=== PATIENT | male | born 1980 | race African-American/Black ===

== ENCOUNTER 2021-11-14 20:24 | Emergency (ER) | payer MEDICARE, OTHER ==
[~2021-11-14] VITALS: Ht 185.4 cm; Wt 124.7 kg
[2021-11-14 20:40] VITALS: BP 134/70
[2021-11-14 21:20] LABS: BASOPHILS % (AUTO) 0.5 % (0.0-2.0); EOSINOPHILS % (AUTO) 2.5 % (0.0-6.0); HEMATOCRIT 39 % (39-51); LYMPHOCYTES % (AUTO) 19.6 % (20.0-44.0); MEAN CORPUSCULAR HGB CONC 33 g/dl (31.0-36.0); MEAN CORPUSCULAR VOLUME 89 fL (80-96); MONOCYTES # (AUTO) 0.3 K/uL (0.1-1.30); MONOCYTES % (AUTO) 5.8 % (2.0-12.0); NEUTROPHILS # (AUTO) 3.5 K/uL (1.8-8.9); NEUTROPHILS % (AUTO) 71.6 % (43.0-81.0); PLATELET COUNT (AUTO) 284 K/uL (150-450); RED BLOOD CELL COUNT(AUTO) 4.41 MIL/uL (4.5-6.0); WHITE BLOOD COUNT (AUTO) 4.9 K/uL (4.3-11.0)
[2021-11-14 21:27] LABS: CALCIUM, SERUM 8.9 mg/dL (8.5-10.1); CREATININE 1.7 mg/dL (0.6-1.3); POTASSIUM 4.3 mmol/L (3.5-5.1)
[2021-11-14 21:33] LABS: ALBUMIN 3.2 g/dL (3.4-5.0); BILIRUBIN,DIRECT 0.1 mg/dL (0.0-0.2); BILIRUBIN,TOTAL 0.2 mg/dL (0.2-1.0); TOTAL PROTEIN, SERUM 7.2 g/dL (6.4-8.2)
[2021-11-14] MEDS ORDERED: ACETAMINOPHEN 325 MG TABLET ONE (22:16)
[2021-11-14] MEDS ORDERED: ACETAMINOPHEN 325 MG TABLET PO ONE (22:30)
--- NOTE | 2021-11-14 22:36 | NUR ---
Patient given written and verbal discharge instructions. Patient verbalizes understanding of instructions. Patient is ambulatory with steady gait. Refuses offer of residential placement. Patient given list of available shelters in surrounding area.
== END 2021-11-14 22:37 | disposition home or self-care (01) ==
LOC: ER 20:27
DX: R20.2 Paresthesia of skin (principal); E86.0 Dehydration; N28.9 Disorder of kidney and ureter, unspecified; F10.10 Alcohol abuse, uncomplicated; I10 Essential (primary) hypertension; E11.9 Type 2 diabetes mellitus without complications; Z59.00 Homelessness unspecified; Y90.9 Presence of alcohol in blood, level not specified
CPT/HCPCS: 36415; 80048-TC; 80076-TC; 83735-TC; 85025-TC

== ENCOUNTER 2021-11-16 14:30 | Emergency (ER) | payer MEDICARE, OTHER ==
[~2021-11-16] VITALS: Ht 180.3 cm; Wt 105.2 kg
[2021-11-16 15:27] LABS: BASOPHILS % (AUTO) 0.3 % (0.0-2.0); EOSINOPHILS % (AUTO) 2.3 % (0.0-6.0); HEMATOCRIT 39 % (39-51); HEMOGLOBIN 12.9 g/dL (13.5-17.5); LYMPHOCYTES # (AUTO) 1.2 K/uL (0.8-4.8); LYMPHOCYTES % (AUTO) 25.1 % (20.0-44.0); MEAN CORPUSCULAR HGB CONC 33 g/dl (31.0-36.0); MEAN CORPUSCULAR VOLUME 89 fL (80-96); MONOCYTES # (AUTO) 0.5 K/uL (0.1-1.30); MONOCYTES % (AUTO) 9.8 % (2.0-12.0); NEUTROPHILS % (AUTO) 62.5 % (43.0-81.0); PLATELET COUNT (AUTO) 307 K/uL (150-450); RED BLOOD CELL COUNT(AUTO) 4.41 MIL/uL (4.5-6.0); WHITE BLOOD COUNT (AUTO) 4.8 K/uL (4.3-11.0)
[2021-11-16 15:39] LABS: CALCIUM, SERUM 8.4 mg/dL (8.5-10.1); CREATININE 1.1 mg/dL (0.6-1.3); POTASSIUM 3.6 mmol/L (3.5-5.1)
[2021-11-16 16:39] LABS: BILIRUBIN,URINE NEGATIVE (NEGATIVE); COLOR,URINE YELLOW (YELLOW); LEUKOCYTE ESTERASE ,URINE NEGATIVE (NEGATIVE); NITRITE, URINE NEGATIVE (NEGATIVE); PH,URINE 7.5 (5.0-8.0); PROTEIN,URINE 30 mg/dl (NEGATIVE); UGLUCOSE NEGATIVE (NEGATIVE)
[2021-11-16 16:53] LABS: RBC,URINE 0-2 /HPF (0-2); WBC,URINE 0-2 /HPF (0-3)
[2021-11-16 16:54] LABS: BACTERIA,URINE Few /HPF (None Seen); SQUAMOUS EPITHELIAL CELL,UR Few /HPF (None Seen)
[2021-11-16 16:59] VITALS: BP 130/74
== END 2021-11-16 17:11 | disposition home or self-care (01) ==
LOC: ER 15:19
DX: E86.0 Dehydration (principal); I10 Essential (primary) hypertension; E11.9 Type 2 diabetes mellitus without complications; Z59.00 Homelessness unspecified
CPT/HCPCS: 36415; 80048-TC; 81001; 82550-TC; 85025-TC

== ENCOUNTER 2021-11-18 11:14 | Emergency (ER) | payer MEDICARE, OTHER ==
[~2021-11-18] VITALS: Ht 185.4 cm; Wt 122.5 kg
--- NOTE | 2021-11-18 11:20 | NUR ---
AUDITORY HALLUCINATION, SUICIDAL IDEATION, OFF OF HIS PSYCH MEDICATIONS REQUESTING VOLUNTARY PSYCHIATRIC ADMISSION TO [facility]. PT PLACED IN GOWN. BELONGING REMOVED, SECURITY WANDED. SAFETY MEAUSURES IN PLACE. PT IS COOPERATIVE.
--- NOTE | 2021-11-18 11:29 | NUR ---
COVID TEST AND URINE COLLECTED AND SENT
--- NOTE | 2021-11-18 11:34 | NUR ---
LAB AT BEDSIDE FOR BLOOD DRAW
[2021-11-18 12:04] LABS: BASOPHILS % (AUTO) 0.6 % (0.0-2.0); HEMATOCRIT 41 % (39-51); HEMOGLOBIN 13.5 g/dL (13.5-17.5); LYMPHOCYTES % (AUTO) 23.8 % (20.0-44.0); MEAN CORPUSCULAR HGB CONC 33 g/dl (31.0-36.0); MEAN CORPUSCULAR VOLUME 89 fL (80-96); MONOCYTES # (AUTO) 0.4 K/uL (0.1-1.30); MONOCYTES % (AUTO) 9.1 % (2.0-12.0); NEUTROPHILS # (AUTO) 2.8 K/uL (1.8-8.9); NEUTROPHILS % (AUTO) 64.5 % (43.0-81.0); PLATELET COUNT (AUTO) 324 K/uL (150-450); RED BLOOD CELL COUNT(AUTO) 4.55 MIL/uL (4.5-6.0); WHITE BLOOD COUNT (AUTO) 4.3 K/uL (4.3-11.0)
[2021-11-18 12:23] LABS: ALANINE AMINOTRANSFERASE 25 U/L (12-78); ALBUMIN 3.6 g/dL (3.4-5.0); ALKALINE PHOSPHATASE 72 U/L (46-116); ASPARTATE AMINOTRANSFERASE 19 U/L (15-37); BILIRUBIN,DIRECT 0.2 mg/dL (0.0-0.2); BILIRUBIN,TOTAL 0.6 mg/dL (0.2-1.0); CALCIUM, SERUM 9.1 mg/dL (8.5-10.1); CARBON DIOXIDE 31 mmol/L (21-32); CHLORIDE 105 mmol/L (98-107); CREATININE 1.1 mg/dL (0.6-1.3); GLUCOSE 94 mg/dL (74-106); POTASSIUM 3.9 mmol/L (3.5-5.1); SODIUM SERUM 141 mmol/L (136-145); TOTAL PROTEIN, SERUM 7.9 g/dL (6.4-8.2); UREA NITROGEN, BLOOD 10 mg/dL (7-18)
[2021-11-18 12:28] LABS: ACETAMINOPHEN 0 ug/ml (10-30); ALCOHOL, BLOOD < 3 mg/dL (0-0)
[2021-11-18 12:29] LABS: BILIRUBIN,URINE NEGATIVE (NEGATIVE); COLOR,URINE YELLOW (YELLOW); LEUKOCYTE ESTERASE ,URINE NEGATIVE (NEGATIVE); NITRITE, URINE NEGATIVE (NEGATIVE); PH,URINE 6.5 (5.0-8.0); PROTEIN,URINE 100 mg/dl (NEGATIVE); UGLUCOSE NEGATIVE (NEGATIVE)
[2021-11-18 12:58] LABS: BACTERIA,URINE None seen /HPF (None Seen); RBC,URINE 0-2 /HPF (0-2); SQUAMOUS EPITHELIAL CELL,UR Rare /HPF (None Seen); WBC,URINE 0-2 /HPF (0-3)
--- NOTE | 2021-11-18 18:57 | NUR ---
ACCEPTED UNDER DR. MERINO REPORT [phone] ASKED FOR US TO SET UP TRANSPORTATION
--- NOTE | 2021-11-18 19:01 | NUR ---
SET UP TRASNPORTATION WITH [facility], ETA 20-30 MINUTES
--- NOTE | 2021-11-18 19:30 | NUR ---
ATTEMPTED TO CALL FOR REPORT. NO ANSWER.
--- NOTE | 2021-11-18 19:56 | NUR ---
REPORT AND PT CHART PROVIDED TO [facility] INDUSTRIAL MAINTENANCE TECHNICIAN. BELONGINGS PROVIDED TO INDUSTRIAL MAINTENANCE TECHNICIAN FOR TRANSPORT.
--- NOTE | 2021-11-18 19:56 | NUR ---
CALLED FOR REPORT. STRAIGHT TO [employer]. [employer] LEFT WITH CALL-BACK NUMBER FOR REPORT.
[2021-11-18] MEDS ORDERED: LORAZEPAM 1 MG TABLET ONE (20:24)
[2021-11-18] MEDS ORDERED: CLONIDINE HCL 0.1 MG TABLET ONE (20:24)
[2021-11-18] MEDS ORDERED: LORAZEPAM 1 MG TABLET PO ONE (20:30)
[2021-11-18] MEDS ORDERED: CLONIDINE HCL 0.1 MG TABLET PO ONE (20:30)
[2021-11-18 21:45] VITALS: BP 154/94
--- NOTE | 2021-11-18 21:50 | NUR ---
[facility] ETA 90 MINS
[2021-11-18] MEDS ORDERED: ZOLPIDEM TARTRATE 5 MG TABLET PO ONE (23:00)
[2021-11-18] MEDS ORDERED: ZOLPIDEM TARTRATE 5 MG TABLET ONE (23:04)
--- NOTE | 2021-11-19 01:23 | NUR ---
patient left in stable condition, stable at this time.
== END 2021-11-19 01:23 ==
LOC: ER 11:22
DX: R45.851 Suicidal ideations (principal); F23 Brief psychotic disorder; Z91.14 Patient's other noncompliance with medication regimen; Z59.00 Homelessness unspecified; I10 Essential (primary) hypertension; E11.9 Type 2 diabetes mellitus without complications; Z20.822 Contact with and (suspected) exposure to COVID-19
CPT/HCPCS: 36415; 80048-TC; 80076-TC; 81001; 85025-TC; C9803; G0480

== ENCOUNTER 2021-12-06 01:22 | Emergency (ER) | payer MEDICARE, OTHER ==
[~2021-12-06] VITALS: Ht 185.4 cm; Wt 97.5 kg
--- NOTE | 2021-12-06 02:00 | NUR ---
C/O FEELING SUICIDAL REQUESTING VOLUNTARY ADMISSION TO [facility] . PT AWAKE AND ALERT, CHANGED INTO GOWN AND BELONGINGS TAKEN FROM PERSON. WANDED BY SECURITY. SAFETY MEASURES IN PLACE.
--- NOTE | 2021-12-06 02:02 | NUR ---
radhaid collected sent to lab
--- NOTE | 2021-12-06 02:02 | NUR ---
urine collected sent to lab
[2021-12-06 02:27] LABS: BASOPHILS % (AUTO) 0.6 % (0.0-2.0); EOSINOPHILS % (AUTO) 3.3 % (0.0-6.0); HEMATOCRIT 37 % (39-51); HEMOGLOBIN 12.2 g/dL (13.5-17.5); LYMPHOCYTES # (AUTO) 1.1 K/uL (0.8-4.8); LYMPHOCYTES % (AUTO) 25.6 % (20.0-44.0); MEAN CORPUSCULAR HGB CONC 33 g/dl (31.0-36.0); MEAN CORPUSCULAR VOLUME 89 fL (80-96); MONOCYTES # (AUTO) 0.4 K/uL (0.1-1.30); MONOCYTES % (AUTO) 9.4 % (2.0-12.0); NEUTROPHILS # (AUTO) 2.6 K/uL (1.8-8.9); NEUTROPHILS % (AUTO) 61.1 % (43.0-81.0); PLATELET COUNT (AUTO) 266 K/uL (150-450); RED BLOOD CELL COUNT(AUTO) 4.13 MIL/uL (4.5-6.0); WHITE BLOOD COUNT (AUTO) 4.3 K/uL (4.3-11.0)
[2021-12-06 02:35] LABS: BILIRUBIN,URINE NEGATIVE (NEGATIVE); LEUKOCYTE ESTERASE ,URINE NEGATIVE (NEGATIVE); NITRITE, URINE NEGATIVE (NEGATIVE); PROTEIN,URINE NEGATIVE (NEGATIVE); UGLUCOSE NEGATIVE (NEGATIVE); UROBILINOGEN,URINE 0.2 EU/dL (0.2)
[2021-12-06 02:36] LABS: COLOR,URINE LIGHT YELLOW (YELLOW)
[2021-12-06 02:59] LABS: ALBUMIN 3.6 g/dL (3.4-5.0); BILIRUBIN,DIRECT 0.1 mg/dL (0.0-0.2); BILIRUBIN,TOTAL 0.3 mg/dL (0.2-1.0); CALCIUM, SERUM 8.5 mg/dL (8.5-10.1); CREATININE 1.4 mg/dL (0.6-1.3); POTASSIUM 3.8 mmol/L (3.5-5.1); TOTAL PROTEIN, SERUM 7.2 g/dL (6.4-8.2)
--- NOTE | 2021-12-06 03:55 | NUR ---
FACESHEET AND CLINICALS FAXED TO [facility].
--- NOTE | 2021-12-06 04:39 | NUR ---
ACCEPTED AT [facility] AFTER 0800 UNIT 1
--- NOTE | 2021-12-06 04:43 | NUR ---
LILI GALARZA ARRANGED ETA [phone]
[2021-12-06 08:00] VITALS: BP 138/76
--- NOTE | 2021-12-06 08:20 | NUR ---
REPORT GIVEN TO JAIDA MARTINEZ
--- NOTE | 2021-12-06 08:21 | NUR ---
PICKED UP BY TRANSPORT IN STABLE CONDITION
== END 2021-12-06 08:22 ==
LOC: ER 01:28
DX: R45.851 Suicidal ideations (principal); Z20.822 Contact with and (suspected) exposure to COVID-19; Z59.00 Homelessness unspecified; I10 Essential (primary) hypertension; E11.9 Type 2 diabetes mellitus without complications; F17.200 Nicotine dependence, unspecified, uncomplicated
CPT/HCPCS: 36415; 80048-TC; 80076-TC; 85025-TC; C9803; G0480

== ENCOUNTER 2022-01-01 20:19 | Emergency (ER) | payer MEDICARE, OTHER ==
[~2022-01-01] VITALS: Ht 185.4 cm; Wt 127.0 kg
--- NOTE | 2022-01-01 20:44 | NUR ---
[facility] 860 FOR HEARING VOICES. REQUESTING VOLUNTARY PSYCH ADMISSION. PT A/OX3. TOLERATING R/A W/ NO RESP DISTRESS. PT CHANGED IN GOWN, BELONGINGS IN LOCKER, WANDED BY SECURITY. SAFETY MEASURES IN PLACE.
[2022-01-01 20:46] VITALS: BP 151/101
--- NOTE | 2022-01-01 21:12 | NUR ---
TOURIST AGENT AT PT'S BEDSIDE
[2022-01-01 21:27] LABS: BASOPHILS # (AUTO) 0.1 K/uL (0.0-0.2); BASOPHILS % (AUTO) 1.3 % (0.0-2.0); EOSINOPHILS % (AUTO) 2.1 % (0.0-6.0); HEMATOCRIT 37 % (39-51); HEMOGLOBIN 12.3 g/dL (13.5-17.5); LYMPHOCYTES # (AUTO) 0.8 K/uL (0.8-4.8); LYMPHOCYTES % (AUTO) 18.8 % (20.0-44.0); MEAN CORPUSCULAR HGB CONC 33 g/dl (31.0-36.0); MEAN CORPUSCULAR VOLUME 89 fL (80-96); MONOCYTES # (AUTO) 0.5 K/uL (0.1-1.30); MONOCYTES % (AUTO) 11.3 % (2.0-12.0); NEUTROPHILS # (AUTO) 2.9 K/uL (1.8-8.9); NEUTROPHILS % (AUTO) 66.5 % (43.0-81.0); PLATELET COUNT (AUTO) 271 K/uL (150-450); RED BLOOD CELL COUNT(AUTO) 4.17 MIL/uL (4.5-6.0); WHITE BLOOD COUNT (AUTO) 4.3 K/uL (4.3-11.0)
[2022-01-01 21:34] LABS: BILIRUBIN,URINE NEGATIVE (NEGATIVE); COLOR,URINE YELLOW (YELLOW); LEUKOCYTE ESTERASE ,URINE NEGATIVE (NEGATIVE); NITRITE, URINE NEGATIVE (NEGATIVE); PROTEIN,URINE NEGATIVE (NEGATIVE); UGLUCOSE NEGATIVE (NEGATIVE); UROBILINOGEN,URINE 0.2 EU/dL (0.2)
[2022-01-01 21:36] LABS: CALCIUM, SERUM 8.6 mg/dL (8.5-10.1); CARBON DIOXIDE 31 mmol/L (21-32); CHLORIDE 104 mmol/L (98-107); CREATININE 1.3 mg/dL (0.6-1.3); GLUCOSE 102 mg/dL (74-106); POTASSIUM 3.6 mmol/L (3.5-5.1); SODIUM SERUM 140 mmol/L (136-145); UREA NITROGEN, BLOOD 16 mg/dL (7-18)
[2022-01-01 21:42] LABS: ACETAMINOPHEN 0 ug/ml (10-30); ALANINE AMINOTRANSFERASE 21 U/L (12-78); ALBUMIN 3.5 g/dL (3.4-5.0); ALCOHOL, BLOOD < 3 mg/dL (0-0); ALKALINE PHOSPHATASE 66 U/L (46-116); ASPARTATE AMINOTRANSFERASE 20 U/L (15-37); BILIRUBIN,DIRECT 0.1 mg/dL (0.0-0.2); BILIRUBIN,TOTAL 0.3 mg/dL (0.2-1.0); TOTAL PROTEIN, SERUM 7.4 g/dL (6.4-8.2)
--- NOTE | 2022-01-02 00:39 | NUR ---
FACESHEET AND CLINICALS TO [facility].
--- NOTE | 2022-01-02 02:48 | NUR ---
ACCEPTED AT [facility] UNDER DR MORALES UNIT 2
--- NOTE | 2022-01-02 02:53 | NUR ---
[facility] ETA 1 HR
--- NOTE | 2022-01-02 03:44 | NUR ---
[facility] AT PT'S BEDSIDE TO TRANSFER PT TO [facility]; REPORT GIVEN
--- NOTE | 2022-01-02 03:53 | NUR ---
REPORT GIVEN TO KALPESH AT [facility]
== END 2022-01-02 07:09 ==
LOC: ER 20:26
DX: R44.0 Auditory hallucinations (principal); I10 Essential (primary) hypertension; E11.9 Type 2 diabetes mellitus without complications; Z59.00 Homelessness unspecified; Z20.822 Contact with and (suspected) exposure to COVID-19; D64.9 Anemia, unspecified
CPT/HCPCS: 36415; 80048-TC; 80076-TC; 85025-TC; C9803; G0480